=== PATIENT | male | born 2000 | race Asian ===

== ENCOUNTER 2023-04-19 06:13 | Inpatient (IN) | payer OTHER ==
[~2023-04-19] VITALS: Ht 170.2 cm; Wt 54.5 kg
[2023-04-19 07:13] LABS: HEMATOCRIT 46.7 % (42.0-52.0); HEMOGLOBIN 16.2 g/dl (13.5-17.5); MEAN CORPUSCULAR HEMOGLOBIN 31.6 pg (27.0-33.0); MEAN CORPUSCULAR HGB CONC 34.7 g/dl (32.0-36.5); PLATELET COUNT, AUTOMATED 316 10^3/uL (150-450); RED BLOOD COUNT 5.13 10^6/uL (4.30-6.10); WHITE BLOOD COUNT 9.2 10^3/uL (4.0-10.0)
[2023-04-19 07:35] LABS: ETHYL ALCOHOL (ETHANOL) 0.102 % (0.000-0.010)
[2023-04-19 07:37] LABS: ACETAMINOPHEN LEVEL < 2.0 UG/ML (10.0-20.0); ALBUMIN 4.2 G/DL (3.2-5.2); ALKALINE PHOSPHATASE 85 U/L (46-116); ALT/SGPT 20 U/L (7.0-40); AST/SGOT 20 U/L (<34); BILIRUBIN,DIRECT 0.3 MG/DL (<0.4); BILIRUBIN,TOTAL 0.8 MG/DL (0.3-1.2); BLOOD UREA NITROGEN 6 MG/DL (9-23); CALCIUM LEVEL 9.1 MG/DL (8.5-10.1); CARBON DIOXIDE LEVEL 27 MMOL/L (20-31); CHLORIDE LEVEL 107 MMOL/L (98-107); CREATININE FOR GFR 0.83 MG/DL (0.70-1.30); GLOMERULAR FILTRATION RATE > 60.0 (>60); GLUCOSE, FASTING 95 MG/DL (60-100); SALICYLATE LEVEL < 3.0 MG/DL (<30); SODIUM LEVEL 146 MMOL/L (136-145); TOTAL PROTEIN 7.7 G/DL (5.7-8.2)
[2023-04-19 07:40] LABS: THYROID STIMULATING HORMONE 1.448 uIU/ML (0.55-4.78)
[2023-04-19] MEDS ORDERED: MED REC IN PROGRESS XX SCH (09:10)
[2023-04-19] MEDS ORDERED: HOME MED LIST COMPLETE! XX SCH (09:20)
[2023-04-19 10:18] LABS: AMPHETAMINES LEVEL URINE NEGATIVE (NEGATIVE); BARBITURATES URINE NEGATIVE (NEGATIVE); BENZODIAZEPINES URINE NEGATIVE (NEGATIVE); CANNABINOIDS URINE NEGATIVE (NEGATIVE); COCAINE METABOLITE URINE NEGATIVE (NEGATIVE); METHADONE URINE NEGATIVE (NEGATIVE); OPIATES URINE NEGATIVE (NEGATIVE); PHENCYCLIDINE URINE NEGATIVE (NEGATIVE)
[2023-04-19] MEDS ORDERED: NICOTINE 21MG/24HR 1 EA TRANSDERMAL TD ONE (13:30)
[2023-04-20] MEDS ORDERED: MULTIVITAMINS/MINERALS THERAP 1 TAB PO SCH (09:00)
[2023-04-20] MEDS ORDERED: FOLIC ACID 1MG TAB PO SCH (09:00)
[2023-04-20] MEDS ORDERED: THIAMINE 100 MG TAB PO SCH (09:00)
[2023-04-20] MEDS ORDERED: ACETAMINOPHEN TAB 650MG DOSE (2X325MG) PO PRN (10:55)
[2023-04-20] MEDS ORDERED: IBUPROFEN 400MG TAB PO PRN ×2 (10:55→15:45)
[2023-04-20] MEDS ORDERED: MOM 30ML SUSPENSION UDC PO PRN ×2 (10:55→15:45)
[2023-04-20] MEDS ORDERED: traZODone 50 MG TAB PO PRN ×2 (10:55→15:45)
[2023-04-20] MEDS ORDERED: LORazepam 2 MG TAB PO PRN ×2 (10:55→15:45)
[2023-04-20] MEDS ORDERED: MAALOX 30 ML SUSP *UDC PO PRN ×2 (10:55→15:45)
[2023-04-20] MEDS ORDERED: diphenhydrAMINE 25MG CAP PO PRN ×2 (10:55→15:45)
[2023-04-20 15:30] VITALS: BP 136/104; TEMP 98.4; O2SAT 98
[2023-04-20] MEDS: ACETAMINOPHEN TAB 650MG DOSE (2X325MG) PO PRN (16:30)
[2023-04-20 18:01] VITALS: BP 100/56; TEMP 98.1; O2SAT 98
[2023-04-20] MEDS: NICOTINE 21MG/24HR 1 EA TRANSDERMAL TD SCH (18:09)
[2023-04-20] MEDS: THIAMINE 100 MG TAB PO SCH (20:33)
[2023-04-20 21:32] VITALS: BP 155/99
[2023-04-21 06:35] VITALS: BP 123/57
[2023-04-21 06:49] VITALS: BP 123/57; TEMP 96.4; O2SAT 100
[2023-04-21] MEDS: FOLIC ACID 1MG TAB PO SCH (09:06)
[2023-04-21] MEDS: NICOTINE 21MG/24HR 1 EA TRANSDERMAL TD SCH (09:06)
[2023-04-21] MEDS: MULTIVITAMINS/MINERALS THERAP 1 TAB PO SCH (09:06)
[2023-04-21] MEDS: THIAMINE 100 MG TAB PO SCH ×2 (09:06→20:35)
[2023-04-21] MEDS: ACETAMINOPHEN TAB 650MG DOSE (2X325MG) PO PRN ×2 (09:06→20:34)
[2023-04-21 16:25] VITALS: BP 136/76; TEMP 97.3; O2SAT 100
[2023-04-22 06:50] VITALS: BP 123/56; TEMP 97.1; O2SAT 100
[2023-04-22] MEDS: THIAMINE 100 MG TAB PO SCH ×2 (08:28→20:15)
[2023-04-22] MEDS: NICOTINE 21MG/24HR 1 EA TRANSDERMAL TD SCH (08:28)
[2023-04-22] MEDS: MULTIVITAMINS/MINERALS THERAP 1 TAB PO SCH (08:28)
[2023-04-22] MEDS: FOLIC ACID 1MG TAB PO SCH (08:28)
[2023-04-22 16:40] VITALS: BP 139/72; TEMP 97.9; O2SAT 100
[2023-04-22] MEDS: ACETAMINOPHEN TAB 650MG DOSE (2X325MG) PO PRN (20:15)
[2023-04-23 06:16] VITALS: BP 105/51; TEMP 97.6; O2SAT 95
[2023-04-23] MEDS: FOLIC ACID 1MG TAB PO SCH (08:00)
[2023-04-23] MEDS: MULTIVITAMINS/MINERALS THERAP 1 TAB PO SCH (08:00)
[2023-04-23] MEDS: NICOTINE 21MG/24HR 1 EA TRANSDERMAL TD SCH (08:01)
[2023-04-23] MEDS ORDERED: NICO21PAT TD (10:07)
[2023-04-23] MEDS ORDERED: TRAZ-252 PO (10:07)
== END 2023-04-23 11:02 | disposition home or self-care (01) | DRG 898 ==
LOC: M ED 06:13 → M ED INP 04-20 10:52 → M PSY 04-20 14:47
PROVIDERS: ADMIT Student in an Organized Health Care Education/Training Program; ATTEND Student in an Organized Health Care Education/Training Program
DX: F10.14 Alcohol abuse with alcohol-induced mood disorder (principal); F43.10 Post-traumatic stress disorder, unspecified; F60.89 Other specific personality disorders; F17.210 Nicotine dependence, cigarettes, uncomplicated; S51.812A Laceration without foreign body of left forearm, initial encounter; X78.8XXA Intentional self-harm by other sharp object, initial encounter; F17.290 Nicotine dependence, other tobacco product, uncomplicated; Y92.002 Bathroom of unspecified non-institutional (private) residence as the place of occurrence of the external cause; Y99.8 Other external cause status; Y93.9 Activity, unspecified

== ENCOUNTER 2023-07-14 10:11 | Emergency (ER) | payer OTHER ==
[~2023-07-14] VITALS: Ht 170.2 cm; Wt 53.2 kg
[~2023-07-14 10:11] MED LIST: NICO21PAT TD; TRAZ-252 PO
[2023-07-14 11:10] LABS: BASO % 0.4 % (0.0-1.0); EOS # 0.1 10^3/uL (0.0-0.5); HEMOGLOBIN 14.7 g/dl (13.5-17.5); LYMPH # 1.9 10^3/uL (1.5-5.0); LYMPH % 18.4 % (24.0-44.0); MEAN CORPUSCULAR HEMOGLOBIN 31.4 pg (27.0-33.0); MEAN CORPUSCULAR VOLUME 89.7 fl (80.0-96.0); MONO # 0.6 10^3/uL (0.0-0.8); MONO % 5.9 % (2.0-8.0); NEUTROPHILS # 7.6 10^3/uL (1.5-8.5); NEUTROPHILS % 73.9 % (36.0-66.0); PLATELET COUNT, AUTOMATED 281 10^3/uL (150-450); RED BLOOD COUNT 4.68 10^6/uL (4.30-6.10); WHITE BLOOD COUNT 10.2 10^3/uL (4.0-10.0)
[2023-07-14 11:38] LABS: LIPASE 28 U/L (12-53)
[2023-07-14 11:41] LABS: ALKALINE PHOSPHATASE 69 U/L (46-116); ALT/SGPT 43 U/L (7.0-40); AST/SGOT 33 U/L (<34); BILIRUBIN,DIRECT 0.3 MG/DL (<0.4); BILIRUBIN,TOTAL 0.8 MG/DL (0.3-1.2); TOTAL PROTEIN 7.1 G/DL (5.7-8.2)
[2023-07-14 11:59] LABS: BLOOD UREA NITROGEN 16 MG/DL (9-23); CALCIUM LEVEL 9.7 MG/DL (8.5-10.1); CARBON DIOXIDE LEVEL 31 MMOL/L (20-31); CHLORIDE LEVEL 104 MMOL/L (98-107); CREATININE FOR GFR 0.92 MG/DL (0.70-1.30); GLOMERULAR FILTRATION RATE > 60.0 (>60); GLUCOSE, FASTING 126 MG/DL (60-100); POTASSIUM SERUM 4.2 MMOL/L (3.5-5.1); SODIUM LEVEL 140 MMOL/L (136-145)
[2023-07-14] MEDS ORDERED: ISOVUE-370 76% 100ML VIAL As Ordered ONE (12:10)
[2023-07-14 13:52] VITALS: BP 109/65; TEMP 98.4; O2SAT 100
== END 2023-07-14 13:55 | disposition home or self-care (01) ==
LOC: M ED 12:31
DX: R10.84 Generalized abdominal pain (principal); F17.290 Nicotine dependence, other tobacco product, uncomplicated; Z79.899 Other long term (current) drug therapy
CPT/HCPCS: 36415; 74177; 80048; 80076; 83690; 85025; 99284; Q9967

== ENCOUNTER 2023-11-06 02:14 | Emergency (ER) | payer OTHER ==
[~2023-11-06] VITALS: Ht 170.2 cm; Wt 51.9 kg
[2023-11-06 02:15] VITALS: TEMP 98.9
[2023-11-06] MEDS ORDERED: DOXY50CA51 PO (02:24)
[2023-11-06] MEDS ORDERED: LIDOCAINE W/EPINEPHRINE 1% 20ML VIAL SC ONE (05:30)
[2023-11-06 06:22] VITALS: BP 135/80; O2SAT 98
== END 2023-11-06 06:23 | disposition home or self-care (01) ==
LOC: M ED 02:14
DX: S01.511A Laceration without foreign body of lip, initial encounter (principal); Y04.2XXA Assault by strike against or bumped into by another person, initial encounter; Y92.410 Unspecified street and highway as the place of occurrence of the external cause; Y93.89 Activity, other specified; Y99.8 Other external cause status